=== PATIENT | male | born 1985 | race Caucasian/White ===

== ENCOUNTER 2019-01-03 14:06 | Emergency (ER) | payer SELFPAY ==
[~2019-01-03] VITALS: Ht 177.8 cm; Wt 75.0 kg
[2019-01-03 14:10] VITALS: Ht 177.8 cm; Wt 75.0 kg
[2019-01-03] MEDS ORDERED: PENICILLIN V P500 MG PO (15:11)
[2019-01-03 15:29] VITALS: BP 130/65
== END 2019-01-03 15:51 | disposition home or self-care (01) ==
LOC: D.ER 14:06
DX: J02.0 Streptococcal pharyngitis (principal); F17.210 Nicotine dependence, cigarettes, uncomplicated